=== PATIENT | female | born 1985 | race Caucasian/White ===

== ENCOUNTER 2016-11-06 11:08 | Emergency (ER) | payer MEDICAID ==
[~2016-11-06] VITALS: Ht 160 cm; Wt 85.0 kg
[2016-11-06 11:22] VITALS: Ht 160 cm; Wt 85.0 kg
[2016-11-06] MEDS ORDERED: IBUPROFEN LIQUID (PED) 20 MG/ML CUP PO STA (11:56)
[2016-11-06] MEDS ORDERED: SODI126M NASAL (12:27)
[2016-11-06] MEDS ORDERED: IBUP-1542 PO (12:27)
[2016-11-06] MEDS ORDERED: OSLT75C PO (12:27)
--- NOTE | 2016-11-06 12:34 | ERD ---
ER Documentation Chief Complaint Date/Time DATE: 11/06/16 TIME: 12:29 Chief Complaint FEVER, BODY PAINS, SORE THROAT HPI 31-year-old female complaining of sore throat and headache since 10 AM this morning. Patient also had slight cough for the last 3 days with nasal congestion, and fever for last 2 days. She has body aches all over. She took Tylenol at home for fever, last dose was 3 hours ago denies shortness of breath. Denies abdominal pain, vomiting, diarrhea. Denies dysuria. ROS All systems reviewed and are negative except as per history of present illness. Medications Home Meds Active Scripts Sodium Chloride (Saline Nasal Mist) 126 Ml Mist, 2 SPRAY NASAL Q2H Y for NASAL CONGESTION, #1 BOTTLE Prov:DAVIN VALLECILLO. ANTHROPOMETRIST 11/06/16 Ibuprofen* (Motrin*) 600 Mg Tab, 600 MG PO Q6H Y for PAIN AND OR ELEVATED TEMP, #30 TAB Prov:DAVIN VALLECILLO. ANTHROPOMETRIST 11/06/16 Oseltamivir Phosphate* (Tamiflu*) 75 Mg Capsule, 75 MG PO BID for 5 Days, CAP Prov:DAVIN VALLECILLO. ANTHROPOMETRIST 11/06/16 PMhx/Soc Medical and Surgical Hx: pt denies Medical Hx, pt denies Surgical Hx Hx Alcohol Use: No Hx Substance Use: No Hx Tobacco Use: No Physical Exam Vitals Vital Signs Date Time Temp Pulse Resp B/P Pulse Ox O2 Delivery O2 Flow Rate FiO2 11/06/16 11:22 101.9 143 28 133/81 99 Physical Exam General impression: Well-developed, well-nourished, 31-year-old female, alert, oriented, appears uncomfortable Head: Normocephalic, atraumatic. Eyes: PERRL, EOM normal. Conjunctiva not injected. ENT: Nasal mucosa erythematous and swollen. Oral mucosa normal. Oropharynx mildly erythematous no pharyngeal swelling or exudates. Neck: Supple, nontender. No lymphanopathy. No nuchal rigidity. Respiration: Normal respiratory effort. Lungs clear to auscultate bilaterally. No wheezes, rales or rhonchi. Cardiovascular: Regular rate and rhythm. No murmurs or extra heart sounds. Abdomen: Abdomen normal to inspection. Nontender. No masses or organomegaly. Bowel sounds normal. Neuro: Mental status normal, speech normal. Skin: Normal turgor. No rash or lesions. Psych: Normal mood and affect. Results 24 hrs Current Medications Medications (Trade) Dose Ordered Sig/Dee Dee Route PRN Reason Start Time Stop Time Status Last Admin Dose Admin Ibuprofen (Motrin Liquid (Ped)) 400 mg ONCE STAT PO 11/06/16 11:56 11/06/16 11:57 DC 11/06/16 12:20 Procedures/MDM Ibuprofen given to the patient in the ED for fever and pain. Patient's symptoms are consistent with influenza. Tamiflu will be given to the patient. Low suspicion for strep pharyngitis. I doubt pneumonia or bronchitis. Patient appears well, stable for discharge and outpatient management. Medical decision making shared with patient and family. Education provided to patient and family. Patient and family expressed understanding of the plan. Medications on discharge: Tamiflu, ibuprofen, saline nasal spray. Follow-up: Primary care provider in 2-3 days or return to ED if worse. Departure Diagnosis: Primary Impression: Flu Condition: Stable Patient Instructions: Influenza (Adult) [facility] Usted se solomon hecho un examen mdico de control que le indica que no est en juan josé condicin que requiera tratamiento urgente en el Departamento de Emergencia. Un estudio ms profundo y el tratamiento de moura condicin pueden esperar sin ningn riesgo hasta que usted sea atendida/o en el consultorio de moura mdico o juan josé cl bell. Es responsabilidad suya arreglar juan josé dimple para el seguimiento del lillian. MANEJO DE CONDICIONES NO URGENTES EN EL FUTURO 1) Si usted tiene un mdico de atencin primaria: Usted debera llamar a moura mdico de atencin primaria antes de venir al departamento de emergencia. Despus de las horas de consultorio, moura doctor o moura asociado/a est disponible por telfono. El mdico o enfermero de germania en el servicio telefnico puede asesorarle por sergio medio para atender el problema, o lillian contrario se puede programar juan josé dimple. 2) Si usted no tiene un mdico de atencin primaria: Llame al mdico o clnica de referencia que aparece abajo kyle las horas de consultorio para hacer juan josé dimple para que le vean. CLINICAS: [place] [address] [phone] [facility] [phone] [facility] [phone] [place] [phone] [place] [phone] [place] [id number] [phone] Additional Instructions: Llame al doctor MAANA y mikey juan josé DIMPLE PARA DENTRO DE 2-3 L[place].Dgale a la secretaria que nosotros le instruimos hacer esta dimple.Avise o llame si moura condicin se empeora antes de la dimple. Regresa aqui si peor o no mejor. DAVIN VALLECILLO. FRANCESCO Nov 06, 2016 12:34
[2016-11-06 13:40] VITALS: TEMP 100.4
== END 2016-11-06 13:41 | disposition home or self-care (01) ==
LOC: FTE 11:08
DX: J11.1 Influenza due to unidentified influenza virus with other respiratory manifestations (principal)
CPT/HCPCS: Z7502; Z7610; 99283

== ENCOUNTER 2018-02-19 17:37 | Emergency (ER) | END 2018-02-19 18:25 | disposition home or self-care (01) ==